=== PATIENT | male | born 1970 | race Caucasian/White ===

== ENCOUNTER 2017-07-21 10:27 | Inpatient (IN) ==
--- NOTE | 2017-07-21 10:47 | Emergency Department Note ---
Disposition Clinical Impression: Suicidal ideation Disposition: Admitted As Inpatient Condition: Fair Psych HPI - General Chief Complaint: ED Psychiatric Symptoms Stated Complaint: SI/HI Time Seen by Provider: 07/21/17 10:39 Source: patient, family Mode of arrival: private vehicle Limitations: no limitations Nursing Notes Reviewed: Yes Vital Signs Reviewed: Yes - History of Present Illness Pt complaint: suicidal ideation, other (angry with everyone and the world) Onset (ago): week(s) Duration: constant, getting worse History of similar episodes: No Improves with: none Worsens with: none Context: significant life stressor (Pt does not wish to discuss this with me) Alleged intoxication: No Associated Psychiatric Symptoms: depression, suicidal ideation, other ("Wants to harm self and others." Patient does not mention any one specifically. He repeats that he is "just angry with the world".) Associated symptoms: Denies: confusion, headache, shortness of breath, nausea, vomiting, syncope, insomnia Traumatic symptoms: denies traumatic injury Treatments prior to arrival: none Self harm or harm to others: admits thoughts of self harm, has plan ("Whatever it takes"), admits thoughts of harming others - Related Data Previous Rx's Medication Instructions Recorded Penicillin VK 500 mg PO QID #28 tablet 12/05/15 Allergies Allergy/AdvReac Type Severity Reaction Status Date / Time codeine AdvReac Chills Verified 07/21/17 10:30 All systems ED: reviewed and negative except as stated. Review of Systems: As Per HPI Constitutional: Denies: fever, chills, weakness, weight change, night sweats Eyes: Denies: vision change Cardiovascular: Denies: chest pain, palpitations, dyspnea on exertion, orthopnea , edema, syncope Respiratory: Denies: cough, dyspnea, wheezes Gastrointestinal: Denies: abdominal pain, nausea, vomiting Musculoskeletal: Denies: back pain, neck pain, joint swelling Neurological: Denies: headache, weakness, numbness, paresthesias, confusion, vertigo Psychiatric: Reports: as per HPI, anxiety, depression, suicidal thoughts. Denies: auditory hallucinations, visual hallucinations Endocrine: Denies: fatigue Hematological/Lymphatic: Denies: easy bleeding, easy bruising Past Medical History - Past Medical History Attestation: Yes The following information was validated with the patient. Source: patient Medical history: Reports: no medical history Surgical history: Reports: appendectomy Psychiatric history: Reports: anxiety, depression - Social History Smoking Status: Current every day smoker Smokeless Tobacco Status: No Alcohol use: Reports: none Drug use: Reports: none Physical Exam Physical exam: Patient is awake, alert and oriented in no acute distress. There are no limitations to the physical exam. Head: Normocephalic, atraumatic, normal inspection Eye: Normal appearance, PERRL, sclerae are anicteric. Conjunctiva noninjected. There is no periorbital swelling. ENT: Mucous membranes are moist Neck: Supple, nontender. Trachea is midline. No palpable lymphadenopathy. No meningeal signs. Chest: Normal inspection, symmetric chest wall rise. Respiratory: No respiratory distress Cardiovascular: Regular rate Extremities: Normal inspection Back: Normal inspection Neurological exam: Alert, oriented 3. Cranial nerves II through XII grossly intact. Normal gait Psychiatric: Flat affect, depressed Skin: Warm and dry, intact, without masses, lesions or rashes. Normal color. - General Limitations: no limitations General appearance: alert Course Course Narrative: Patient presents from home with significant other for evaluation of suicidal ideation, anger, depression, thoughts of harming self and others. He does not describe a specific plan, just states, "I will do whatever it takes." He does not mention any specific person by name whom he wishes harm upon. He has no abnormalities identified on the physical exam. Labs have been ordered. Case has been discussed with Dr. Montez. As it is 11:00, patient care will be transferred to him. Vital Signs Temperature 98.5 F 07/21/17 10:30 Pulse Rate 90 07/21/17 10:30 Respiratory Rate 20 07/21/17 10:30 Blood Pressure 142/92 07/21/17 10:30 O2 Sat by Pulse Oximetry 96 07/21/17 10:30 Temperature 98.5 F 07/21/17 10:30 Pulse Rate 90 07/21/17 10:30 Respiratory Rate 20 07/21/17 10:30 Blood Pressure 142/92 07/21/17 10:30 O2 Sat by Pulse Oximetry 96 07/21/17 10:30 Oxygen Delivery Oxygen Delivery Room Air Psychiatric Medical Clearance - Medical Clearance Checklist Does the patient have a NEW psychiatric condition?: Yes Any abnormalities indicating possible medical illness?: No Any history of medical issues?: No Medical History: Apical abscess (Inactive) Dental caries (Inactive) Pain due to dental caries (Inactive) No Social History Section defined Any abnormal vital signs prior to transfer?: No Current Vitals: Last Vital Signs Temp 98.5 F 07/21/17 10:30 Pulse 90 07/21/17 10:30 Resp 20 07/21/17 10:30 BP 142/92 07/21/17 10:30 Pulse Ox 96 07/21/17 10:30 Is the patient intoxicated or cognitively impaired?: No Any abnormalities on the physical exam?: No Is the patient ambulatory?: Yes Is the patient a fall risk?: No Statement of Medical Clearance: I have evaluated the patient, reviewed diagnostic information, and certify that the patient's medical condition is sufficiently stable that transfer to the psychiatric unit does not pose a significant risk of deterioration.
[2017-07-21 11:12] LABS: Bilirubin,Urine Small (Negative); Blood,Urine Negative (Negative); Clarity,Urine Clear (Clear); Color,Urine Dark Yellow (Yellow); Glucose,Urine (UA) Normal (Normal); Ketones,Urine Trace mg/dL (Negative); Leukocyte Esterase,Urine Small (Negative); Nitrite,Urine Negative (Negative); Protein,Urine Trace mg/dL (Neg-Trace); Specific Gravity,Urine 1.029 (1.010-1.025); Urobilinogen,Urine Normal (Normal)
[2017-07-21 11:14] LABS: Bacteria,Urine None Seen per hpf (None-Few); Hyaline Casts,Urine None Seen per lpf (None-Few); Squamous Epithelial Cell,Urine Many per lpf (None-Few)
[2017-07-21 11:17] LABS: Basophils # 0.1 K/mcL (0.0-0.2); Basophils % 0.9 %; Eosinophils # 0.2 K/mcL (0.0-0.6); Eosinophils % 2.3 %; Hematocrit 45.9 % (37.5-50.1); Hemoglobin 15.9 g/dL (12.9-16.9); Immature Granulocytes % 0.2 % (0-4); Lymphocytes # 2.4 K/mcL (0.6-4.6); Lymphocytes % 27.8 %; Mean Corpuscular HGB Conc 34.6 g/dL (31.6-35.5); Mean Corpuscular Hemoglobin 31.4 pg (28.0-33.3); Mean Corpuscular Volume 90.7 fL (83.0-100.0); Mean Platelet Volume 9.4 fL (9.4-12.4); Monocytes # 0.6 K/mcL (0.0-1.3); Monocytes % 6.7 %; Neutrophils # 5.4 K/mcL (1.6-8.9); Platelet Count 247 K/mcL (140-400); Red Blood Count 5.06 M/mcL (4.19-5.50); Red Cell Distribution Width 12.1 % (11.5-14.5); Segmented Neutrophils % 62.1 %
[2017-07-21 11:18] LABS: Alanine Aminotransferase 11 Units/L (7-52); Albumin 4.7 g/dL (3.5-5.7); Albumin/Globulin Ratio 1.5 (1.1-2.2); Alkaline Phosphatase 85 Units/L (34-104); Aspartate Amino Transferase 15 Units/L (13-39); BUN/Creatinine Ratio 13 (6-26); Bilirubin,Direct 0.2 mg/dL (0.0-0.2); Bilirubin,Indirect 0.5 mg/dL (0.0-1.2); Bilirubin,Total 0.7 mg/dL (0.3-1.0); Blood Urea Nitrogen 13 mg/dL (6-20); Calcium 9.6 mg/dL (8.6-10.3); Carbon Dioxide 27 mEq/L (23-29); Chloride 103 mEq/L (98-107); Globulin 3.1 g/dL (2.4-3.5); Glucose 97 mg/dL (70-105); Osmolality,Calculated 284 (280-300); Sodium 137 mEq/L (136-145); Total Protein 7.8 g/dL (6.4-8.9); eGFR For African Americans > 60 (> 60); eGFR For Non-African Americans > 60 (> 60)
[2017-07-21 12:07] LABS: Thyroid Stimulating Hormone 1.399 mcIU/mL (0.340-5.600)
[2017-07-21 12:31] LABS: Acetaminophen < 10 mcg/mL (10-20); Ethanol < 10 mg/dL (Less than 10); Salicylate < 2.5 mg/dL (15.0-30.0)
[2017-07-21 12:31] LABS: Amphetamine Screen,Urine Negative ng/mL (Cutoff=1000); Barbiturate Screen,Urine Negative ng/mL (Cutoff=200); Benzodiazepines Screen,Urine Negative ng/mL (Cutoff=200); Cannabinoid Screen,Urine Negative ng/mL (Cutoff = 50); Cocaine Screen,Urine Negative ng/mL (Cutoff= 300); Opiate Screen,Urine Negative ng/mL (Cutoff=300); Phencyclidine Screen,Urine Negative ng/mL (Cutoff=25)
--- NOTE | 2017-07-21 13:28 | Emergency Department Note ---
Disposition Clinical Impression: Suicidal ideation Depression Qualifiers: Depression Type: unspecified Qualified Code(s): F32.9 - Major depressive disorder, single episode, unspecified Disposition: Admitted As Inpatient Condition: Fair Forms: ED Satisfaction Letter Time of Disposition: 13:28 General Adult HPI - General Chief complaint: ED Psychiatric Symptoms Stated complaint: SI/HI Time Seen by Provider: 07/21/17 10:39 Source: patient, family Mode of arrival: private vehicle Limitations: no limitations - History of Present Illness Pain Scale: 0 - Related Data Allergies Allergy/AdvReac Type Severity Reaction Status Date / Time codeine AdvReac Chills Verified 07/21/17 10:30 Constitutional: Denies: fever, chills, weakness, weight change, night sweats Eyes: Denies: vision change Cardiovascular: Denies: chest pain, palpitations, dyspnea on exertion, orthopnea , edema, syncope Respiratory: Denies: cough, dyspnea, wheezes Gastrointestinal: Denies: abdominal pain, nausea, vomiting Musculoskeletal: Denies: back pain, neck pain, joint swelling Neurological: Denies: headache, weakness, numbness, paresthesias, confusion, vertigo Psychiatric: Reports: as per HPI, anxiety, depression, suicidal thoughts. Denies: auditory hallucinations, visual hallucinations Endocrine: Denies: fatigue Hematological/Lymphatic: Denies: easy bleeding, easy bruising Past Medical History - Past Medical History Medical history: Reports: no medical history Surgical history: Reports: appendectomy Psychiatric history: Reports: anxiety, depression - Social History Smoking Status: Current every day smoker Smokeless Tobacco Status: No Alcohol use: Reports: none Drug use: Reports: none Physical Exam - General Limitations: no limitations General appearance: alert Course Vital Signs Temperature 98.5 F 07/21/17 10:30 Pulse Rate 90 07/21/17 10:30 Respiratory Rate 20 07/21/17 10:30 Blood Pressure 142/92 07/21/17 10:30 O2 Sat by Pulse Oximetry 96 07/21/17 10:30 Temperature 98.5 F 07/21/17 10:30 Pulse Rate 90 07/21/17 10:30 Respiratory Rate 20 07/21/17 10:30 Blood Pressure 142/92 07/21/17 10:30 O2 Sat by Pulse Oximetry 96 07/21/17 10:30 Oxygen Delivery Oxygen Delivery Room Air Medical Decision Making - Lab Data Result diagrams: 07/21/17 10:51 07/21/17 10:51 Lab Results 07/21/17 07/21/17 07/21/17 Range/Units 10:43 10:48 10:51 WBC 8.7 (4.3-11.1) K/mcL RBC 5.06 (4.19-5.50) M/mcL Hgb 15.9 (12.9-16.9) g/dL Hct 45.9 (37.5-50.1) % MCV 90.7 (83.0-100.0) fL MCH 31.4 (28.0-33.3) pg MCHC 34.6 (31.6-35.5) g/dL RDW 12.1 (11.5-14.5) % Plt Count 247 (140-400) K/mcL MPV 9.4 (9.4-12.4) fL Immature Gran % 0.2 (0-4) % Seg Neutrophils % 62.1 % Lymphocytes % 27.8 % Monocytes % 6.7 % Eosinophils % 2.3 % Basophils % 0.9 % Neutrophils # 5.4 (1.6-8.9) K/mcL Lymphocytes # 2.4 (0.6-4.6) K/mcL Monocytes # 0.6 (0.0-1.3) K/mcL Eosinophils # 0.2 (0.0-0.6) K/mcL Basophils # 0.1 (0.0-0.2) K/mcL Sodium (136-145) mEq/L Potassium (3.5-5.1) mEq/L Chloride (98-107) mEq/L Carbon Dioxide (23-29) mEq/L BUN (6-20) mg/dL Creatinine (0.70-1.30) mg/dL Est GFR ( Amer) (> 60) Est GFR (Non-Af Amer) (> 60) BUN/Creatinine Ratio (6-26) Glucose (70-105) mg/dL Calculated Osmolality (280-300) Calcium (8.6-10.3) mg/dL Total Bilirubin (0.3-1.0) mg/dL Direct Bilirubin (0.0-0.2) mg/dL Indirect Bilirubin (0.0-1.2) mg/dL AST (13-39) Units/L ALT (7-52) Units/L Alkaline Phosphatase (34-104) Units/L Serum Total Protein (6.4-8.9) g/dL Albumin (3.5-5.7) g/dL Globulin (2.4-3.5) g/dL Albumin/Globulin Ratio (1.1-2.2) TSH (0.340-5.600) mcIU/mL Urine Color Dark Yellow (Yellow) Urine Clarity Clear (Clear) Urine pH 6.0 (5.0-8.0) pH Units Ur Specific [place] 1.029 H (1.010-1.025) Urine Protein Trace (Neg-Trace) mg/dL Urine Glucose (UA) Normal (Normal) mg/dL Urine Ketones Trace H (Negative) mg/dL Urine Blood Negative (Negative) Urine Nitrite Negative (Negative) Urine Bilirubin Small H (Negative) Urine Urobilinogen Normal (Normal) mg/dL Ur Leukocyte Esterase Small H (Negative) Urine Microscopic RBC 3-5 H (0-3) per hpf Urine Microscopic WBC 3-5 H (0-3) per hpf Ur Squamous Epith Cells Many H (None-Few) per lpf Urine Bacteria None Seen (None-Few) per hpf Hyaline Casts None Seen (None-Few) per lpf Salicylates (15.0-30.0) mg/dL Urine Opiates Screen Negative (Usmfao=226) ng/mL Acetaminophen (10-20) mcg/mL Ur Barbiturates Screen Negative (Jchjpf=370) ng/mL Ur Phencyclidine Scrn Negative (Cutoff=25) ng/mL Ur Amphetamines Screen Negative (Ufjgmp=4241) ng/mL U Benzodiazepines Scrn Negative (Ythyci=377) ng/mL Urine Cocaine Screen Negative (Cutoff= 300) ng/mL U Marijuana (THC) Screen Negative (Cutoff = 50) ng/mL Ethyl Alcohol (Less than 10) mg/dL 07/21/17 Range/Units 10:51 WBC (4.3-11.1) K/mcL RBC (4.19-5.50) M/mcL Hgb (12.9-16.9) g/dL Hct (37.5-50.1) % MCV (83.0-100.0) fL MCH (28.0-33.3) pg MCHC (31.6-35.5) g/dL RDW (11.5-14.5) % Plt Count (140-400) K/mcL MPV (9.4-12.4) fL Immature Gran % (0-4) % Seg Neutrophils % % Lymphocytes % % Monocytes % % Eosinophils % % Basophils % % Neutrophils # (1.6-8.9) K/mcL Lymphocytes # (0.6-4.6) K/mcL Monocytes # (0.0-1.3) K/mcL Eosinophils # (0.0-0.6) K/mcL Basophils # (0.0-0.2) K/mcL Sodium 137 (136-145) mEq/L Potassium 4.0 (3.5-5.1) mEq/L Chloride 103 (98-107) mEq/L Carbon Dioxide 27 (23-29) mEq/L BUN 13 (6-20) mg/dL Creatinine 0.98 (0.70-1.30) mg/dL Est GFR ( Amer) > 60 (> 60) Est GFR (Non-Af Amer) > 60 (> 60) BUN/Creatinine Ratio 13 (6-26) Glucose 97 (70-105) mg/dL Calculated Osmolality 284 (280-300) Calcium 9.6 (8.6-10.3) mg/dL Total Bilirubin 0.7 (0.3-1.0) mg/dL Direct Bilirubin 0.2 (0.0-0.2) mg/dL Indirect Bilirubin 0.5 (0.0-1.2) mg/dL AST 15 (13-39) Units/L ALT 11 (7-52) Units/L Alkaline Phosphatase 85 (34-104) Units/L Serum Total Protein 7.8 (6.4-8.9) g/dL Albumin 4.7 (3.5-5.7) g/dL Globulin 3.1 (2.4-3.5) g/dL Albumin/Globulin Ratio 1.5 (1.1-2.2) TSH 1.399 (0.340-5.600) mcIU/mL Urine Color (Yellow) Urine Clarity (Clear) Urine pH (5.0-8.0) pH Units Ur Specific [place] (1.010-1.025) Urine Protein (Neg-Trace) mg/dL Urine Glucose (UA) (Normal) mg/dL Urine Ketones (Negative) mg/dL Urine Blood (Negative) Urine Nitrite (Negative) Urine Bilirubin (Negative) Urine Urobilinogen (Normal) mg/dL Ur Leukocyte Esterase (Negative) Urine Microscopic RBC (0-3) per hpf Urine Microscopic WBC (0-3) per hpf Ur Squamous Epith Cells (None-Few) per lpf Urine Bacteria (None-Few) per hpf Hyaline Casts (None-Few) per lpf Salicylates < 2.5 L (15.0-30.0) mg/dL Urine Opiates Screen (Ycrmsk=250) ng/mL Acetaminophen < 10 L (10-20) mcg/mL Ur Barbiturates Screen (Egoudz=740) ng/mL Ur Phencyclidine Scrn (Cutoff=25) ng/mL Ur Amphetamines Screen (Fajqnz=6666) ng/mL U Benzodiazepines Scrn (Tdwvxj=750) ng/mL Urine Cocaine Screen (Cutoff= 300) ng/mL U Marijuana (THC) Screen (Cutoff = 50) ng/mL Ethyl Alcohol < 10 (Less than 10) mg/dL Attestation Statement - Attestation Attestation: For this encounter, I have reviewed the QUALITY INSPECTOR or PA documentation, treatment plan, and medical decision making; and I have had face to face time with this patient. The patient describes suicidal generalized homicidal intentions. Physical exam lungs are clear abdomen soft. Patient does admit to suicidal ideation. Patient will be admitted to psychiatry.
[2017-07-21] MEDS ORDERED: MOM Conc 10 ML UD.LIQ PO PRN (15:33)
[2017-07-21] MEDS ORDERED: traZODone 50 MG TABLET PO PRN (15:33)
[2017-07-21] MEDS ORDERED: *HR* LORazepam 2 MG/ML VIAL IM PRN (15:33)
[2017-07-21] MEDS ORDERED: Haloperidol Lactate 5 MG/ML VIAL IM PRN (15:33)
[2017-07-21] MEDS ORDERED: *HR* LORazepam 1 MG TABLET PO PRN (15:33)
[2017-07-21] MEDS ORDERED: Mag Hydrox/Al Hydrox/Simeth 30 ML UDC PO PRN (15:33)
[2017-07-21] MEDS ORDERED: Ibuprofen 400 MG TABLET PO PRN (15:33)
[2017-07-21] MEDS ORDERED: hydrOXYzine pamoate 25 MG CAPSULE PO PRN (15:33)
[2017-07-22] MEDS: Nicotine 14 MG PATCH.TD24 TD SCH (08:58)
--- NOTE | 2017-07-22 11:25 | Psychiatry History & Physical ---
Date of Encounter: 07/22/17 Time of Encounter: 10:49 History of Present Illness Patient Stated Chief Complaint: i am depress Medicare Admission Attestation: For traditional Medicare patients the provided hospital inpatient services are reasonable and necessary and in the case of services not specified as inpatient -only under 42 CFR 419.22 (n), that they are appropriately provided as inpatient services in accordance 42 CFR 412.3. For Critical Access Hospital the patient may reasonably be expected to be discharged or transferred to a hospital within 96 hours after admission to the Critical Access Hospital. Admitted From: Emergency Dept Plans for Post Hospital Care: Home History of Present Illness: Mr. Norris is a 47 year old male evaluated today , admitted to inpatient from ED , CAME IN WITH HIS Girl friend for worsening of depression and suicidal and homicidal thoughts. he states depression was worse over few months, he was isolative, lack of motivation , decrease concentration on disability for his right hand injury since child. He is depress and since one of the client here made remarks about him to other client that he beat his X , he is upset that it is not true and he did not hurt any one. he is not sleeping well but states he slept last night. because of situation on unit he wants to go home but he is dysphoric and depress and denies psychosis, no manic episode. he denies any substance use , no alcohol. he has been treated for depression 10 years ago and since then none. he denies any psychiatric inpatient treatment. Denies family h/o mental illness. Social : in process of divorce but has GF and lives with her , on disability , has one child, legal none. at present will start patient on medication and continue close observation , he denies suicidal thoughts at present., denies any homicidal thoughts. Past Med Surg Social Fam HX - Past Medical History Medical history: no medical history - Past Psychiatric History Psychiatric history: Reports: depression Family psychiatric history: No Family History of Suicide: None - Past Surgical History Surgical History: appendectomy - Social History Smoking Status: Current every day smoker Smokeless Tobacco Status: No Alcohol use: none Drug use: none Occupational status: disabled Current living situation: Home - Independent Activity Level: Independent ambulation Recent Out of Country Travel Within the Last 8 Weeks: No Exposure or Possible Exposure to Illness During Travel: No Medications & Allergies No Known Home Drugs 07/21/17 [History] 3 Allergy/AdvReac Type Severity Reaction Status Date / Time codeine AdvReac Chills Verified 07/21/17 13:31 Review of Systems Constitutional: Denies: fever, chills, weakness, weight change Eyes: Denies: eye pain, vision change Ears, Nose, Throat: Denies: ear pain, throat pain, dental pain, hearing loss, congestion Cardiovascular: Denies: chest pain, palpitations, dyspnea on exertion Respiratory: Denies: cough, dyspnea, wheezes Gastrointestinal: Denies: abdominal pain, nausea, vomiting, diarrhea, constipation Genitourinary male: Denies: urgency, dysuria, frequency, genital lesions Musculoskeletal: Denies: joint swelling, joint pain Integumentary: Denies: rash, lesions, pruritus Neurological: Denies: headache, weakness, numbness, memory loss Psychiatric: Reports: depression, anxiety, abnormal sleep pattern, hopelessness Endocrine: Denies: fatigue, heat or cold intolerance Hematologic/Lymphatic: Denies: easy bruising, lymphadenopathy Allergic/Immunologic: Denies: urticaria, itchy eyes Exam - HEENT Head exam IM: Present: atraumatic, normal inspection, normocephalic Eye exam IM: Present: normal appearance ENT exam IM: Present: normal exam - Neurological Neurological exam: Present: CN II-XII intact, alert - Respiratory Respiratory exam IM: Present: CTAB - GI/Abdominal GI/Abdominal exam IM: Present: normal bowel sounds, soft. Absent: tenderness - Extremities Extremities exam IM: Present: full ROM - Skin Skin exam IM: Present: dry, warm - Constitutional Vitals: Temp Pulse Resp BP Pulse Ox 97.4 F L 53 18 111/71 96 07/21/17 20:59 07/21/17 20:59 07/21/17 20:59 07/21/17 20:59 07/21/17 10:30 General appearance: age & developmentally appropriate, well-groomed, well- nourished - Musculoskeletal Gait: normal Station: relaxed Strength & Tone: normal for patient - Psychiatric Patient Orientation: Yes Person, Yes Time, Yes Place, Yes Circumstance Level of alertness: Alert Behavior: cooperative, withdrawn Psychomotor activity: Normal Eye Contact: Maintains Eye Contact Mood Description: Depressed, Anxious Affect description: constricted Speech Volume: Soft/Quiet Speech pattern: coherent, slowed Language & Vocabulary: consistent with education Thought Process: Intact Thought Content: Yes Intact Attention Span Ability: Capable of Focused Attention Memory Description: Grossly Intact Patient Reliability: Questionable Historian Fund of knowledge: Yes average Intelligence Estimate: Average Judgment: Poor Insight: Partial Results - Labs Labs: Laboratory Last Values WBC 8.7 K/mcL (4.3-11.1) 07/21/17 10:51 RBC 5.06 M/mcL (4.19-5.50) 07/21/17 10:51 Hgb 15.9 g/dL (12.9-16.9) 07/21/17 10:51 Hct 45.9 % (37.5-50.1) 07/21/17 10:51 MCV 90.7 fL (83.0-100.0) 07/21/17 10:51 MCH 31.4 pg (28.0-33.3) 07/21/17 10:51 MCHC 34.6 g/dL (31.6-35.5) 07/21/17 10:51 RDW 12.1 % (11.5-14.5) 07/21/17 10:51 Plt Count 247 K/mcL (140-400) 07/21/17 10:51 MPV 9.4 fL (9.4-12.4) 07/21/17 10:51 Immature Gran % 0.2 % (0-4) 07/21/17 10:51 Seg Neutrophils % 62.1 % 07/21/17 10:51 Lymphocytes % 27.8 % 07/21/17 10:51 Monocytes % 6.7 % 07/21/17 10:51 Eosinophils % 2.3 % 07/21/17 10:51 Basophils % 0.9 % 07/21/17 10:51 Neutrophils # 5.4 K/mcL (1.6-8.9) 07/21/17 10:51 Lymphocytes # 2.4 K/mcL (0.6-4.6) 07/21/17 10:51 Monocytes # 0.6 K/mcL (0.0-1.3) 07/21/17 10:51 Eosinophils # 0.2 K/mcL (0.0-0.6) 07/21/17 10:51 Basophils # 0.1 K/mcL (0.0-0.2) 07/21/17 10:51 Sodium 137 mEq/L (136-145) 07/21/17 10:51 Potassium 4.0 mEq/L (3.5-5.1) 07/21/17 10:51 Chloride 103 mEq/L (98-107) 07/21/17 10:51 Carbon Dioxide 27 mEq/L (23-29) 07/21/17 10:51 BUN 13 mg/dL (6-20) 07/21/17 10:51 Creatinine 0.98 mg/dL (0.70-1.30) 07/21/17 10:51 Est GFR ( Amer) > 60 (> 60) 07/21/17 10:51 Est GFR (Non-Af Amer) > 60 (> 60) 07/21/17 10:51 BUN/Creatinine Ratio 13 (6-26) 07/21/17 10:51 Glucose 97 mg/dL (70-105) 07/21/17 10:51 Calculated Osmolality 284 (280-300) 07/21/17 10:51 Calcium 9.6 mg/dL (8.6-10.3) 07/21/17 10:51 Total Bilirubin 0.7 mg/dL (0.3-1.0) 07/21/17 10:51 Direct Bilirubin 0.2 mg/dL (0.0-0.2) 07/21/17 10:51 Indirect Bilirubin 0.5 mg/dL (0.0-1.2) 07/21/17 10:51 AST 15 Units/L (13-39) 07/21/17 10:51 ALT 11 Units/L (7-52) 07/21/17 10:51 Alkaline Phosphatase 85 Units/L (34-104) 07/21/17 10:51 Serum Total Protein 7.8 g/dL (6.4-8.9) 07/21/17 10:51 Albumin 4.7 g/dL (3.5-5.7) 07/21/17 10:51 Globulin 3.1 g/dL (2.4-3.5) 07/21/17 10:51 Albumin/Globulin Ratio 1.5 (1.1-2.2) 07/21/17 10:51 TSH 1.399 mcIU/mL (0.340-5.600) 07/21/17 10:51 Urine Color Dark Yellow (Yellow) 07/21/17 10:43 Urine Clarity Clear (Clear) 07/21/17 10:43 Urine pH 6.0 pH Units (5.0-8.0) 07/21/17 10:43 Ur Specific [place] 1.029 (1.010-1.025) H 07/21/17 10:43 Urine Protein Trace mg/dL (Neg-Trace) 07/21/17 10:43 Urine Glucose (UA) Normal mg/dL (Normal) 07/21/17 10:43 Urine Ketones Trace mg/dL (Negative) H 07/21/17 10:43 Urine Blood Negative (Negative) 07/21/17 10:43 Urine Nitrite Negative (Negative) 07/21/17 10:43 Urine Bilirubin Small (Negative) H 07/21/17 10:43 Urine Urobilinogen Normal mg/dL (Normal) 07/21/17 10:43 Ur Leukocyte Esterase Small (Negative) H 07/21/17 10:43 Urine Microscopic RBC 3-5 per hpf (0-3) H 07/21/17 10:43 Urine Microscopic WBC 3-5 per hpf (0-3) H 07/21/17 10:43 Ur Squamous Epith Cells Many per lpf (None-Few) H 07/21/17 10:43 Urine Bacteria None Seen per hpf (None-Few) 07/21/17 10:43 Hyaline Casts None Seen per lpf (None-Few) 07/21/17 10:43 Salicylates < 2.5 mg/dL (15.0-30.0) L 07/21/17 10:51 Urine Opiates Screen Negative ng/mL (Hkzbtr=207) 07/21/17 10:48 Acetaminophen < 10 mcg/mL (10-20) L 07/21/17 10:51 Ur Barbiturates Screen Negative ng/mL (Brllji=325) 07/21/17 10:48 Ur Phencyclidine Scrn Negative ng/mL (Cutoff=25) 07/21/17 10:48 Ur Amphetamines Screen Negative ng/mL (Pmqftr=6503) 07/21/17 10:48 U Benzodiazepines Scrn Negative ng/mL (Lwkvgt=937) 07/21/17 10:48 Urine Cocaine Screen Negative ng/mL (Cutoff= 300) 07/21/17 10:48 U Marijuana (THC) Screen Negative ng/mL (Cutoff = 50) 07/21/17 10:48 Ethyl Alcohol < 10 mg/dL (Less than 10) 07/21/17 10:51 Assessment and Plan (1) Suicidal ideation Current visit: Yes Status: Acute Plan: Admit inpatient for safety and stabilization, Close observation, Suicide Precautions per unit protocol, Encourage participation in unit milieu, Group Therapy, Monitor sleep, Monitor appetite, Family/Supportive other meeting Risks, benefits, side effects, alternatives discussed w/pt: Yes Patient agreeable to treatment: Yes Plans for Post Hospital Care: at Home (2) Depression Current visit: Yes Status: Acute Plan: Admit inpatient for safety and stabilization, Close observation, Suicide Precautions per unit protocol, Encourage participation in unit milieu, Group Therapy, Monitor sleep, Monitor appetite, Family/Supportive other meeting Additional Plan: will start celexa and side effects explained to patient. Risks, benefits, side effects, alternatives discussed w/pt: Yes Patient agreeable to treatment: Yes Plans for Post Hospital Care: at Home Estimated Length of Stay (Days): 4 Qualifiers: Depression Type: major depressive disorder Major depression recurrence: recurrent Active/Remission status: currently active Psychotic features: without psychotic features Qualified Code(s): F33.2 - Major depressive disorder, recurrent severe without psychotic features
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
[2017-07-23] MEDS: Nicotine 14 MG PATCH.TD24 TD SCH (08:33)
[2017-07-23 09:33] VITALS: BP 113/75
== END 2017-07-23 09:08 | disposition home or self-care (01) | DRG 751 ==
LOC: EMEROO 10:27 → 1ANU 13:36
PROVIDERS: ADMIT Psychiatry & Neurology Psychiatry; ATTEND Psychiatry & Neurology Psychiatry